=== PATIENT | male | born 1970 | race Caucasian/White ===

== ENCOUNTER → 2021-03-18 | Outpatient (CLI) | payer OTHER ==
--- NOTE | 2021-03-18 16:52 | RAD ---
EXAM: 1. THORACIC SPINE 3 VIEWS. 2. LUMBAR SPINE 3 VIEWS. HISTORY: Thoracolumbar back pain. COMPARISON: None. FINDINGS: There is moderate to severe degenerative disc disease from C3 through C7, incompletely eval uated. A minimal thoracic dextrocurvature is within normal limits. Vertebral body heights are maintained, an d no fractures are identified. Abnormality indicates mild lower thoracic degenerative disc disease. A mild lumbar levocurvature measures <15 degrees. No fractures are identified. Degenerative disc dise ase is mild from L1 through L4. There are changes of left inguinal hernia repair. IMPRESSION: 1. Moderate to severe cervical degenerative disc disease, incompletely evaluated. 2. Degenerative disc disease is mild within the lower thoracic spine and from L2 through L5. Electronically signed by: Sade Vicente MD (03/18/2021 4:50 PM) [id number]
== END ==
LOC: RAD 14:48
PROVIDERS: ATTEND Nurse Practitioner Family
DX: M51.36 Other intervertebral disc degeneration, lumbar region (principal); M51.34 Other intervertebral disc degeneration, thoracic region; M50.31 Other cervical disc degeneration, high cervical region; M50.323 Other cervical disc degeneration at C6-C7 level; M48.02 Spinal stenosis, cervical region; R51.9 Headache, unspecified
CPT/HCPCS: 72072; 72100

== ENCOUNTER → 2021-09-30 | Outpatient (CLI) | payer OTHER ==
--- NOTE | 2021-09-30 12:50 | RAD ---
Left lower extremity venous duplex study Clinical History: Left lower extremity swelling Technique: Using a combination of real time ultrasound imaging and color-flow and pulse Doppler imagi ng techniques, including spectral analysis, graded compression and augmentation, duplex evaluation of the deep venous system of the left lower extremity was performed. Multiple images were obtained. Findings: There is no sonographic evidence of deep venous thrombosis involving the visualized deep ve nous structures of the left lower extremity Impression: No evidence of deep venous thrombosis involving the left lower extremity Electronically signed by: Sam Alfaro MD (09/30/2021 12:48 PM) [id number]
== END ==
LOC: US 11:22
PROVIDERS: ATTEND Orthopaedic Surgery
DX: M79.89 Other specified soft tissue disorders (principal); Z98.890 Other specified postprocedural states
CPT/HCPCS: 93971

== ENCOUNTER 2021-10-10 11:52 | Emergency (ER) | payer OTHER ==
[~2021-10-10] VITALS: Ht 182.9 cm; Wt 97.0 kg
[2021-10-10 12:05] VITALS: BP 148/79
[2021-10-10] MEDS ORDERED: HYDROcodone/APAP 5/325MG 1 TAB TABLET PO ONE (12:30)
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
[2021-10-10] MEDS ORDERED: IV NORMAL SALINE 100ML 100 ML ONE (12:39)
--- NOTE | 2021-10-10 12:56 | RAD ---
Left lower extremity venous real time grayscale, color and spectral duplex ultrasound was performed. History: Reason: pain, swelling x months worse today / Spl. Instructions: / History: Comparison: 09/30/2021 The left common femoral, femoral, and popliteal veins demonstrate anechoic lumina, full compressibi lity, augmentable waveforms, and cephalad color Doppler flow. The posterior tibial are also patent. Normal flow is also seen in the cephalad portion of the saphenous vein. Impression: No evidence of DVT in the left lower extremity. Electronically signed by: Mario Palomares MD (10/10/2021 12:53 PM) [id number]
[2021-10-10 13:49] LABS: CALCIUM 8.8 mg/dL (8.5-10.1); CREATININE 0.8 mg/dL (0.7-1.3); GFR 101.5; POTASSIUM 3.8 mmol/L (3.5-5.1)
[2021-10-10 13:51] LABS: BASO % 1 % (0-3); EOS # 0.3 x10^3/uL (0.0-0.7); EOS % 4 % (0-3); HEMOGLOBIN 14.6 g/dL (13.0-17.5); LYMPH # 1.8 x10^3/uL (1.0-4.8); LYMPH % 26 % (24-48); MEAN CORPUSCULAR HEMOGLOBIN 29 pg (25-35); MEAN CORPUSCULAR HGB CONC 34 g/dL (31-37); MEAN CORPUSCULAR VOLUME 85 fL (79-100); MONO # 0.5 x10^3/uL (0.0-1.1); MONO % 8 % (0-9); NEUT # 4.4 x10^3uL (1.8-7.7); NEUT % 62 % (31-73); PLATELET COUNT 221 x10^3/uL (140-400); RED BLOOD COUNT 5.04 x10^6/uL (4.30-5.70); RED CELL DISTRIBUTION WIDTH 13.5 % (11.5-14.5); WHITE BLOOD COUNT 7.1 x10^3/uL (4.0-11.0)
[2021-10-10 13:56] LABS: ALBUMIN 3.2 g/dL (3.4-5.0); ALBUMIN/GLOBULIN RATIO 0.8 (1.0-1.7); C REACTIVE PROTEIN 12.5 mg/L (0-3.3); TOTAL BILIRUBIN 0.5 mg/dL (0.2-1.0)
[2021-10-10] MEDS ORDERED: CEPH500C PO (14:10)
[2021-10-10 15:00] LABS: SEDIMENTATION RATE 16 (0-15)
== END 2021-10-10 14:50 | disposition home or self-care (01) ==
LOC: ER 11:52 → EEVIPCON 11:52 → ER 14:50
DX: L03.116 Cellulitis of left lower limb (principal); R74.01 Elevation of levels of liver transaminase levels; G89.29 Other chronic pain
CPT/HCPCS: 36415; 80053; 85025; 85651; 86140; 93971; 96365; 99284; J0696